=== PATIENT | male | born 1945 | race Caucasian/White ===

== ENCOUNTER → 2016-09-16 | Outpatient (CLI) | payer MEDICARE, MEDICAID ==
[~2016-09-16] MED LIST: AMLO5TAB2 PO; ATOR1TAB21 PO; DOKTAB2 GT; FENT25PA TOP; GLIM4TAB PO; HYDR-3716 PO; INSUDET SC; LACT20EL GT; MAGICMW PO; MUPI2OI TOP; PHEN30TA37 PO; PRIMI25TA PO; RAMI10CA PO; SILV50CR TOP
--- NOTE | 2016-09-16 10:13 | RADONC ---
RADIATION ONCOLOGY FOLLOWUP NOTE: DATE: 09/16/2016 DIAGNOSIS: Pyriform sinus. STAGE: Stage IV. ECOG PERFORMANCE STATUS: 1 Mr. 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 The patient presents today reporting that he is being seen by his head and neck surgeon Dr. Carlisle every 4 weeks for fiberoptic laryngoscopic evaluation. He has been told he is free of disease at this point. There have been no abnormalities seen. The patient is complaining of difficulty swallowing meat or bulky foods. He is otherwise doing quite well. The patient's review of systems is positive for difficulty swallowing, meat or other chewy foods, but is otherwise noncontributory. He denies nausea, vomiting, fevers, chills, night sweats, diplopia, headaches, anxiety or depression, anorexia, weight loss, visual disturbances, chest pain, urinary or bowel difficulties, bone pain, or neurological problems. PHYSICAL EXAMINATION: The patient is a well-developed, well-nourished white male in no acute distress. HEENT: Exam is normocephalic, atraumatic. Extraocular movements are intact. Oral cavity examination reveals no evidence of nodularity, ulceration or recurrent disease. There is no evidence of xerostomia. The skin over the treated field is in good condition. There is no palpable cervical, supraclavicular, infraclavicular, axillary or inguinal lymphadenopathy present. His lungs are clear to auscultation and percussion. His heart has a regular rate and rhythm. His abdomen is benign with no hepatosplenomegaly, masses or tenderness. Skeletal examination reveals no tenderness to pressure or percussion of the bony skeleton. Extremities reveal no clubbing, cyanosis or edema. Neurologic exam is grossly intact. ASSESSMENT: The patient is clinically stable at this time and will be seen by us again in 6 months for further followup. He will also continue to be followed by his other physicians as well. cc: MD Neptali Qiu MD Joseph Wetterhahn, MD *Dr. Mars Carlisle
== END ==
LOC: M ONCR 09:01
PROVIDERS: ATTEND Radiology Radiation Oncology
DX: C12 Malignant neoplasm of pyriform sinus (principal); C77.0 Secondary and unspecified malignant neoplasm of lymph nodes of head, face and neck

== ENCOUNTER 2016-10-15 04:37 | Emergency (ER) | payer OTHER, MEDICARE ==
[~2016-10-15] VITALS: Ht 195.6 cm; Wt 79.4 kg
[2016-10-15] MEDS ORDERED: TETANUS/DIPHTHERIA TOX ADSORB ADULT 0.5ML SYR/VIAL (90714) IM ONE (05:15)
--- NOTE | 2016-10-15 05:40 | REPUSA ---
CLINICAL HISTORY: Headache. TECHNIQUE: Multiple axial CT images were obtained through the brain without IV contrast material. COMMENTS: There is normal configuration of sella turcica. There are no intra or extra-axial collections. There is no mass effect or midline shift. There is no evidence of hematoma formation. No hydrocephalus is p resent. The ventricles are symmetrical. No abnormal calcifications are present. There is diffuse age-appropriate cerebellar and cerebral atrophy with proportionally dilated ventricl es and cortical sulci. There are bilateral periventricular and subcortical white matter hypolucencies compatible with mild c hronic microvascular disease. Otherwise, no significant focal abnormalities are seen either in the posterior fossa or supratentoria l compartment. IMPRESSION: 1. Age-appropriate cerebellar and cerebral atrophy. 2. Mild chronic microvascular disease. 3. No evidence of acute intracranial pathology. Thank you for your kind referral of this patient.
[2016-10-15 05:48] VITALS: BP 110/62
== END 2016-10-15 05:49 | disposition home or self-care (01) ==
LOC: M ED 05:28
DX: S00.93XA Contusion of unspecified part of head, initial encounter (principal); S60.511A Abrasion of right hand, initial encounter; S60.512A Abrasion of left hand, initial encounter; S80.212A Abrasion, left knee, initial encounter; W01.0XXA Fall on same level from slipping, tripping and stumbling without subsequent striking against object, initial encounter; Y92.89 Other specified places as the place of occurrence of the external cause; Y93.89 Activity, other specified; Y99.0 Civilian activity done for income or pay; I10 Essential (primary) hypertension; E11.9 Type 2 diabetes mellitus without complications; G40.909 Epilepsy, unspecified, not intractable, without status epilepticus; M54.9 Dorsalgia, unspecified; Z88.0 Allergy status to penicillin; Z79.899 Other long term (current) drug therapy

== ENCOUNTER → 2017-03-31 | Outpatient (CLI) | payer MEDICARE ==
--- NOTE | 2017-04-01 08:48 | RADONC ---
RADIATION ONCOLOGY FOLLOWUP NOTE DATE: 03/31/2017 CHART NUMBER: [id number] DIAGNOSIS: Pyriform sinus. STAGE: IV. ECOG PERFORMANCE STATUS: 0 FOLLOWUP NOTE: Mr. 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 The patient reports that he was just seen by Dr. Carlisle last week who found no evidence of disease. He is doing quite well. He reports total resolution of his diabetes as well as his hypertension. He is taking no medication for either at this point. He is able to swallow and does not have a sore throat. REVIEW OF SYSTEMS: The patient's review of systems is positive for some stiffness of the skin and neck, but is otherwise generally noncontributory. He denies nausea, vomiting, fevers, chills, night sweats, diplopia, headaches, anxiety or depression, anorexia, weight loss, visual disturbances, chest pain, urinary or bowel difficulties, bone pain or neurological problems. PHYSICAL EXAMINATION: The patient is a well-developed, well-nourished white male in no acute distress. HEENT: Exam is normocephalic, atraumatic. Extraocular movements are intact. The patients oral cavity shows no evidence of nodularity, ulceration or recurrent disease. There is no palpable cervical, supraclavicular, infraclavicular, axillary or inguinal lymphadenopathy present. 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 His lungs are clear to auscultation and percussion. Heart has regular rate and rhythm. ASSESSMENT: The patient is clinically doing remarkably well considering how extremely advanced his lesion was. I have scheduled him to see me again in 6 months for further followup. He will also continue to be followed routinely by Dr. Carlisle who is seeing him every 4 weeks. He reports that he has new scans scheduled for
== END ==
LOC: M ONCR 08:38
PROVIDERS: ATTEND Radiology Radiation Oncology
DX: C77.0 Secondary and unspecified malignant neoplasm of lymph nodes of head, face and neck (principal); C12 Malignant neoplasm of pyriform sinus

== ENCOUNTER → 2017-06-25 | Outpatient (CLI) | payer MEDICARE ==
[2017-06-25 09:13] LABS: BASO # 0.1 10^3/uL (0.0-0.2); BASO % 0.8 % (0.0-1.0); EOS # 0.2 10^3/uL (0.0-0.50); IMMATURE GRANULOCYTE % 0.3 % (0-0); LYMPH # 1.3 10^3/uL (1.5-4.5); MEAN CORPUSCULAR HEMOGLOBIN 32.9 pg (27.0-33.0); MEAN CORPUSCULAR HGB CONC 34.3 g/dl (32.0-36.5); MEAN CORPUSCULAR VOLUME 95.8 fl (80.0-96.0); MONO # 1.2 10^3/uL (0.0-0.8); MONO % 12.7 % (0.0-5.0); NEUTROPHILS # 6.5 10^3/uL (1.8-7.7); NEUTROPHILS % 70.2 % (36.0-66.0); PLATELET COUNT, AUTOMATED 342 10^3/uL (150-450); RED CELL DISTRIBUTION WIDTH 14.6 % (11.5-14.5); WHITE BLOOD COUNT 9.3 10^3/uL (4.0-10.0)
[2017-06-25 09:36] LABS: ALBUMIN 3.6 GM/DL (3.2-5.2); ALBUMIN/GLOBULIN RATIO 0.95 (1.00-1.93); ALKALINE PHOSPHATASE 117 U/L (45-117); ALT/SGPT 19 U/L (12-78); ANION GAP 5 MEQ/L (8-16); AST/SGOT 18 U/L (7-37); BILIRUBIN,TOTAL 0.5 MG/DL (0.2-1.0); BLOOD UREA NITROGEN 14 MG/DL (7-18); CALCIUM LEVEL 8.7 MG/DL (8.8-10.2); CARBON DIOXIDE LEVEL 29 MEQ/L (21-32); CHLORIDE LEVEL 103 MEQ/L (98-107); CREATININE FOR GFR 1.01 MG/DL (0.70-1.30); GLOMERULAR FILTRATION RATE > 60.0 (>42); GLUCOSE, FASTING 96 MG/DL (83-110); POTASSIUM SERUM 5.1 MEQ/L (3.5-5.1); SODIUM LEVEL 137 MEQ/L (136-145); TOTAL PROTEIN 7.4 GM/DL (6.4-8.2)
== END ==
LOC: M WUC 08:18
PROVIDERS: ATTEND Physician Assistant
DX: R19.7 Diarrhea, unspecified (principal)

== ENCOUNTER → 2017-11-02 | Outpatient (CLI) | payer MEDICARE ==
[2017-11-02 20:10] LABS: BASO % 0.4 % (0.0-1.0); EOS # 0.1 10^3/uL (0.0-0.50); EOS % 1.3 % (0.0-3.0); HEMATOCRIT 39.7 % (42.0-52.0); HEMOGLOBIN 13.3 g/dl (13.5-17.5); IMMATURE GRANULOCYTE % 0.4 % (0-3.0); LYMPH # 1.9 10^3/uL (1.5-4.5); LYMPH % 23.4 % (24.0-44.0); MEAN CORPUSCULAR HEMOGLOBIN 32.1 pg (27.0-33.0); MEAN CORPUSCULAR HGB CONC 33.5 g/dl (32.0-36.5); MEAN CORPUSCULAR VOLUME 95.9 fl (80.0-96.0); MONO # 1.4 10^3/uL (0.0-0.8); MONO % 17.3 % (0.0-5.0); NEUTROPHILS # 4.5 10^3/uL (1.8-7.7); NEUTROPHILS % 57.2 % (36.0-66.0); PLATELET COUNT, AUTOMATED 349 10^3/uL (150-450); RED BLOOD COUNT 4.14 10^6/uL (4.30-6.10); RED CELL DISTRIBUTION WIDTH 14.3 % (11.5-14.5); WHITE BLOOD COUNT 7.9 10^3/uL (4.0-10.0)
[2017-11-02 20:18] LABS: ALBUMIN 3.9 GM/DL (3.2-5.2); ALBUMIN/GLOBULIN RATIO 0.93 (1.00-1.93); ALKALINE PHOSPHATASE 82 U/L (45-117); ALT/SGPT 17 U/L (12-78); AMYLASE 36 U/L (25-115); ANION GAP 8 MEQ/L (8-16); AST/SGOT 16 U/L (7-37); BILIRUBIN,TOTAL 0.5 MG/DL (0.2-1.0); BLOOD UREA NITROGEN 33 MG/DL (7-18); CALCIUM LEVEL 8.8 MG/DL (8.8-10.2); CARBON DIOXIDE LEVEL 26 MEQ/L (21-32); CHLORIDE LEVEL 108 MEQ/L (98-107); CREATININE FOR GFR 1.26 MG/DL (0.70-1.30); GLOMERULAR FILTRATION RATE > 60.0 (>42); GLUCOSE, FASTING 101 MG/DL (70-100); LIPASE 99 U/L (73-393); POTASSIUM SERUM 4.7 MEQ/L (3.5-5.1); SODIUM LEVEL 142 MEQ/L (136-145); TOTAL PROTEIN 8.1 GM/DL (6.4-8.2)
== END ==
LOC: M WUC 15:41
DX: R19.7 Diarrhea, unspecified (principal)
CPT/HCPCS: 82150

== ENCOUNTER → 2019-07-04 | Outpatient (CLI) | payer MEDICARE ==
[~2019-07-04] MED LIST changes: -AMLO5TAB2 PO; +AMLO5TAB6 PO; -DOKTAB2 GT; +FENT25DI33 TOP; -FENT25PA TOP; -GLIM4TAB PO; +GLIM4TAB3 PO; +LACT10SO7 GT; -LACT20EL GT; +MUPI1OIN2 TOP; -MUPI2OI TOP; -RAMI10CA PO; +RAMI1CAP26 PO; +SENN1TAB84 GT; -SILV50CR TOP; +THER1CRE16 TOP
--- NOTE | 2019-07-05 12:54 | REP ---
PET/CT: History: Restaging head and neck cancer. Comparisons: Comparison orbital facial MRI study May 19, 2019. Comparison CT study of the chest March 22, 2015. There are CT images of the head and neck from March 10 and 2014 done coincident with radiation therapy treatment planning. TECHNIQUE: 55 minutes following the intravenous injection of a 8.86 mCi dose of F-18 FDG, three-dimensional PET scintigraphy is acquired from the skull base to the proximal thighs. Triplanar noncontrast CT scanning is acquired through the same anatomic range for attenuation correction, and image registration with scan parameters optimized to minimize radiation exposure to the patient. PET scintigraphy and CT datasets were fused and displayed on a workstation with multiplanar and projection display capability. PET/CT Findings: There is some normal variant skeletal muscle uptake in the posterior paracervical musculature at the cervical spine. There is ill-defined minimally increased uptake in the parapharyngeal and carotid space soft tissues bilaterally, actually more prominent on the right than the left. Maximum standard uptake value here is only 3.8 on the right and 3.05 on the left. This appears to be most compatible with postradiation change. There is however a lytic bony destructive lesion in the mandibular ramus on the right which measures 2.5 cm in length by 0.9 cm in greatest depth. There is mildly hypermetabolic uptake particularly along the proximal border of this bony erosive lesion where maximum standard uptake value is 6.38. 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 This merits further clinical correlation. Head and neck soft tissue uptake pattern is otherwise unremarkable. There are multiple mildly hypermetabolic foci of increased uptake in the left lower lobe. A nodular focus of minimally hypermetabolic uptake is seen in the superior segment of the left lower lobe where maximum standard uptake value is 2.80. There is an infiltrate in the left lower lobe posteriorly suggestive of pneumonia morphologically. Maximum standard uptake value here is 3.71. There is an additional nodular focus of minimally hypermetabolic uptake in the left lower lobe posterior to the infrahilar vessels medially where maximum standard uptake value is 3.32. These left lower lobe changes may be inflammatory. The nodular changes are nonspecific and should be followed. No other abnormal pulmonary parenchymal hypermetabolic uptake is seen. No abnormal jeramie uptake is seen in the mediastinum. In the abdomen and pelvis, normal hepatic, gastrointestinal, and genitourinary FDG accumulation is seen. The spleen is surgically absent. There are bilateral hip arthroplasties and a ventral hernia repair is seen. No abnormal abdominal or pelvic hypermetabolic uptake is seen. Impression: 1. 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 Clinical correlation is suggested. 2. There is minimally increased uptake in the parapharyngeal and carotid space soft tissues bilaterally, right a little more prominently than left. Most compatible with postradiation change. No hypermetabolic adenopathy is seen. 3. There is a mildly hypermetabolic infiltrate in the left lower lobe lung base and there are two nodular areas of slightly increased uptake which are nonspecific but may be inflammatory as well. Followup is advised for this finding. Electronically Signed by Stewart Pelayo MD 07/05/2019 06:22 P
== END ==
LOC: M PLARAD 07:38
PROVIDERS: ATTEND Otolaryngology
DX: R91.8 Other nonspecific abnormal finding of lung field (principal); K13.79 Other lesions of oral mucosa; K22.9 Disease of esophagus, unspecified; R22.0 Localized swelling, mass and lump, head
CPT/HCPCS: 78815; A9552

== ENCOUNTER → 2020-04-01 | Outpatient (CLI) | payer MEDICARE ==
[~2020-04-01] MED LIST changes: +AMLO1TAB24 PO; -AMLO5TAB6 PO; -GLIM4TAB3 PO; +GLIM4TAB5 PO
[2020-04-01 20:11] LABS: BASO # 0.1 10^3/uL (0.0-0.2); BASO % 0.9 % (0.0-1.0); EOS # 0.4 10^3/uL (0.0-0.5); EOS % 3.9 % (0.0-3.0); HEMATOCRIT 35.2 % (42.0-52.0); HEMOGLOBIN 11.6 g/dl (13.5-17.5); LYMPH # 1.1 10^3/uL (1.5-5.0); LYMPH % 10.1 % (24.0-44.0); MEAN CORPUSCULAR HEMOGLOBIN 34.1 pg (27.0-33.0); MEAN CORPUSCULAR VOLUME 103.5 fl (80.0-96.0); MONO # 1.6 10^3/uL (0.0-0.8); MONO % 14.7 % (0.0-5.0); NEUTROPHILS # 7.7 10^3/uL (1.5-8.5); NEUTROPHILS % 69.9 % (36.0-66.0); PLATELET COUNT, AUTOMATED 337 10^3/uL (150-450); WHITE BLOOD COUNT 11.1 10^3/uL (4.0-10.0)
[2020-04-01 20:21] LABS: ALBUMIN 3.4 GM/DL (3.2-5.2); BILIRUBIN,TOTAL 0.3 MG/DL (0.2-1.0); CALCIUM LEVEL 9.2 MG/DL (8.8-10.2); CREATININE FOR GFR 1.28 MG/DL (0.70-1.30); GLOMERULAR FILTRATION RATE 58.6 (>42); POTASSIUM SERUM 4.8 MEQ/L (3.5-5.1); TOTAL PROTEIN 7.4 GM/DL (6.4-8.2)
== END ==
LOC: M WUC 15:13
PROVIDERS: ATTEND Otolaryngology
DX: K22.9 Disease of esophagus, unspecified (principal); C02.9 Malignant neoplasm of tongue, unspecified